=== PATIENT | male | born 1985 | race Caucasian/White ===

== ENCOUNTER 2016-11-07 12:59 | Emergency (ER) | payer OTHER ==
[2016-11-07] MEDS ORDERED: Rocephin 1000 MG INJ IM ONE (13:14)
[2016-11-07 13:15] VITALS: O2SAT 96
--- NOTE | 2016-11-07 13:19 | ERPHSYRPT ---
- History of Present Illness Time Seen by Provider: 11/07/16 13:14 Physician History: 31-year-old male came to the emergency room with complaining of severe sore throat and left ear pain. He is also complaining of pain in the both lower extremities. Symptoms started approximately one to 2 days ago. Patient was complaining of some fever with chills yesterday. Timing/Duration: day(s) (2-3 days) Cough Quality/Degree: no cough Associated Symptoms: earache (left), sore throat, No cough Allergies/Adverse Reactions: No Known Drug Allergies Allergy (Unverified 11/07/16 13:15) Home Medications: Ferrous Sulfate [Iron] 325 mg PO BID 11/07/16 [History] - Review of Systems Constitutional: No Fever, No Chills Eyes: No Symptoms Ears, Nose, & Throat: No Symptoms, Ear Pain, Throat Pain Respiratory: No Cough, No Dyspnea Cardiac: No Chest Pain, No Edema, No Syncope Abdominal/Gastrointestinal: No Abdominal Pain, No Nausea, No Vomiting, No Diarrhea Genitourinary Symptoms: No Dysuria Musculoskeletal: No Back Pain, No Neck Pain Skin: No Rash Neurological: No Dizziness, No Focal Weakness, No Sensory Changes Psychological: No Symptoms Endocrine: No Symptoms All Other Systems: Reviewed and Negative - Nursing Vital Signs Nursing Vital Signs: Initial Vital Signs Temperature 98.6 F Temperature Source Oral Pulse Rate 81 Respiratory Rate 20 Blood Pressure [Right Arm] 120/76 Pain Intensity 7 - Physical Exam General Appearance: no apparent distress Eye Exam: PERRL/EOMI Ears, Nose, Throat Exam: TM abnormal (L), pharyngeal erythema Neck Exam: normal inspection Respiratory Exam: normal breath sounds Cardiovascular Exam: regular rate/rhythm Gastrointestinal/Abdomen Exam: soft - Course Nursing assessment & vital signs reviewed: Yes Ordered Tests: Medication Summary Discontinued Medications Generic Name Dose Route Start Last Admin Trade Name Freq PRN Reason Stop Dose Admin Ceftriaxone Sodium 1,000 mg 11/07/16 13:14 11/07/16 13:26 Rocephin 1000 Mg Inj IM 11/07/16 13:15 1,000 mg STAT ONE Administration Ceftriaxone Sodium Confirm 11/07/16 13:21 Rocephin 1000 Mg Inj Administered 11/07/16 13:22 Dose 1,000 mg .ROUTE .STK-MED ONE Lidocaine HCl Confirm 11/07/16 13:21 Xylocaine 1% Hcl 20 Ml Mdv Administered 11/07/16 13:22 Dose 1 ml .ROUTE .STK-MED ONE - Progress Progress: unchanged Air Movement: good Blood Culture(s) Obtained: No Antibiotics given: Yes Counseled pt/family regarding: diagnosis, need for follow-up - Departure Time of Disposition: 13:19 Departure Disposition: Home Clinical Impression: Pharyngitis Qualifiers: Pharyngitis/tonsillitis etiology: unspecified etiology Qualified Code(s): J02.9 - Acute pharyngitis, unspecified Condition: Stable Critical Care Time: No Referrals: CRISTIN HAN [Primary Care Provider] - Instructions: Strep Throat Additional Instructions: UPPER RESPIRATORY INFECTIONS 1. The signs and symptoms of a cold may last up to 10 days. These illnesses are due to viruses which are not treatable with antibiotics. 2. The following suggestions can aid in recovery and to minimize symptoms: A. Increase fluid intake. B. Acetaminophen or Ibuprofen as directed. C. Avoid smoking environments as this will increase the risk of developing pneumonia. D. For children, may use a cool mist vaporizer in the child's room. 3. Contact your Family Physician if you note: A. Persistent fever >103 for more than 3 days B. Breathing difficulty C. Productive cough of yellow/green sputum D. Illness greater than 7 days E. Persistent vomiting F. Stiff neck Please follow the instructions given to you. Please take your medication as prescribed if given. If symptoms recur or get worse, come back to the emergency room if you cannot reach your primary care physician, or call your primary care physician for an appointment. Again if your symptoms get worse, come back to the emergency room. Thanks for visiting emergency room, and let us take care of you. Prescriptions: Amoxicillin/Potassium Clav [Amox-Clav 875-125 mg Tablet] 1 each PO BID #15 tablet Buspirone HCl 5 mg [Buspar 5 mg] 5 mg PO BID #10 tablet
[2016-11-07] MEDS ORDERED: Rocephin 1000 MG INJ ONE (13:21)
[2016-11-07] MEDS ORDERED: XYLOCAINE 1% HCL 20 ML MDV ONE (13:21)
[2016-11-07 13:56] VITALS: BP 122/62; PULSE 78
== END 2016-11-07 13:55 | disposition home or self-care (01) ==
LOC: ED 12:59
DX: J02.9 Acute pharyngitis, unspecified (principal); M79.662 Pain in left lower leg; M79.661 Pain in right lower leg
CPT/HCPCS: 96372; 99284; J0696

== ENCOUNTER 2017-02-07 02:30 | Emergency (ER) | payer OTHER ==
--- NOTE | 2017-02-07 02:43 | ERPHSYRPT ---
- History of Present Illness Time Seen by Provider: 02/07/17 02:40 Source: patient Exam Limitations: no limitations Physician History: 31-year-old white male arrives with complaint of pain in his throat since yesterday. Patient has not had any vomiting no diarrhea melena hematochezia no fevers. He does have some leg pain. Past medical history patient states he has a history of a leg pain and has had a diagnosis of vitamin D deficiency. Past surgical history negative. Timing/Duration: yesterday Severity: moderate Modifying Factors: Improves With: nothing Associated Symptoms: other (sore throat bilateral leg pain), No nausea, No vomiting, No abdominal pain, No shortness of breath, No heartburn, No diaphoresis, No cough, No chills, No chest pain, No fever, No headaches, No loss of appetite, No malaise, No rash, No syncope, No seizure, No weakness Allergies/Adverse Reactions: No Known Drug Allergies Allergy (Verified 02/07/17 02:41) Home Medications: Ferrous Sulfate [Iron] 325 mg PO BID 11/07/16 [History] Ergocalciferol (Vitamin D2) [Vitamin D] 0 unit PO 02/07/17 [History] Hx Tetanus, Diphtheria Vaccination/Date Given: Yes Hx Influenza Vaccination/Date Given: No Hx Pneumococcal Vaccination/Date Given: No - Review of Systems Constitutional: No Fever, No Chills Eyes: No Symptoms Ears, Nose, & Throat: Throat Pain, No Ear Pain, No Ear Discharge, No Hearing Changes, No Tinnitus, No Nose Pain, No Nose Congestion, No Nose Discharge, No Sinus Drainage, No Epistaxis, No Mouth Pain, No Mouth Swelling, No Loose Teeth, No Throat Swelling, No Hoarse, No Painful Swallowing, No Snoring, No Stridor Respiratory: No Cough, No Dyspnea Cardiac: No Chest Pain, No Edema, No Syncope Abdominal/Gastrointestinal: No Abdominal Pain, No Nausea, No Vomiting, No Diarrhea Genitourinary Symptoms: No Dysuria Musculoskeletal: No Back Pain, No Neck Pain Skin: No Rash Neurological: No Dizziness, No Focal Weakness, No Sensory Changes Psychological: No Symptoms Endocrine: No Symptoms All Other Systems: Reviewed and Negative - Past Medical History Pertinent Past Medical History: Yes Other Medical History: iron def. - Past Surgical History Past Surgical History: Yes Other Surgical History: sinus surgery - Social History Smoking Status: Never smoker Exposure to second hand smoke: No Drug Use: none Patient Lives Alone: No - Nursing Vital Signs Nursing Vital Signs: Initial Vital Signs Temperature 100.6 F Temperature Source Oral Pulse Rate 106 Respiratory Rate 16 Blood Pressure [Right Arm] 145/84 Pain Intensity 7 - Physical Exam General Appearance: no apparent distress, alert Eye Exam: PERRL/EOMI, eyes nml inspection Ears, Nose, Throat Exam: TMs normal, pharyngeal erythema, No pharynx normal ( throat erythmatous), No moist mucous membranes, No dry mucous membranes Neck Exam: normal inspection, non-tender, supple, full range of motion Respiratory Exam: normal breath sounds, lungs clear, No respiratory distress Cardiovascular Exam: regular rate/rhythm, normal heart sounds, normal peripheral pulses Gastrointestinal/Abdomen Exam: soft, normal bowel sounds, No tenderness, No mass Back Exam: normal inspection, normal range of motion, No CVA tenderness, No vertebral tenderness Extremity Exam: normal inspection, normal range of motion, pelvis stable Neurologic Exam: alert, oriented x 3, cooperative, normal mood/affect, nml cerebellar function, nml station & gait, sensation nml, No motor deficits Skin Exam: normal color, warm, dry, No rash Lymphatic Exam: No adenopathy SpO2 Interpretation: normal ([id number]%) - Course Nursing assessment & vital signs reviewed: Yes Ordered Tests: Active Orders 24 hr Category Date Time Status STREP SCREEN-BETA A Stat Lab 02/07/17 02:45 Completed Lab/Rad Data: Laboratory Results 02/07/17 Range/Units 02:45 Streptococcus Screen POSITIVE (Negative) - Progress Progress: improved Progress Note: 02/07/17 02:59 This is a 31-year-old white male with history of vitamin D deficiency. He arrives with complaint of a sore throat since yesterday he has a erythematous throat and he has an increased temperature here in the emergency room. Strep is positive Will go ahead and place patient on amoxicillin 500 mg orally 3 times a day for 10 days. - Departure Time of Disposition: 03:01 Departure Disposition: Home Clinical Impression: Strep pharyngitis Condition: Fair Critical Care Time: No Instructions: Strep Throat Additional Instructions: Return home. Plenty of fluids. Amoxicillin 500 mg orally 3 times a day for 10 days. Tylenol every 4-6 hours as needed for pain. Follow-up with your family symptoms are worse no better in 48 hours, or persist longer than one week. Return for acute distress or for severe symptoms. Prescriptions: Amoxicillin 500 mg PO TID #30 capsule
[2017-02-07] MEDS ORDERED: AMOXIL 500 MG PO ONE (03:03)
[2017-02-07] MEDS ORDERED: TYLENOL 325 MG PO ONE (03:03)
[2017-02-07] MEDS ORDERED: TYLENOL 325 MG ONE (03:07)
[2017-02-07] MEDS ORDERED: AMOXIL 500 MG ONE (03:07)
[2017-02-07 03:33] VITALS: BP 119/77; PULSE 97; O2SAT 99
== END 2017-02-07 03:34 | disposition home or self-care (01) ==
LOC: ED 02:30
DX: J02.0 Streptococcal pharyngitis (principal)
CPT/HCPCS: 87430; 99283; A9270-GY

== ENCOUNTER 2021-05-12 09:17 | Emergency (ER) | payer OTHER ==
[2021-05-12] MEDS ORDERED: Sodium Chloride 0.9% 1000 ML 1,000 ML IV STA ×2 (09:45→11:31)
[2021-05-12] MEDS ORDERED: Sodium Chloride 0.9% 1000 ML 1,000 ML ONE ×2 (09:51→11:34)
--- NOTE | 2021-05-12 10:08 | ERPHSYRPT ---
- History of Present Illness Time Seen by Provider: 05/12/21 09:40 Source: patient Exam Limitations: no limitations Patient Subjective Stated Complaint: weakness/ fatigue Triage Nursing Assessment: Patient ambulated back to ED and transferred self to bed. Patient A+O X3. Patient's skin pink, warm and dry. Patient complains of weakness and fatigue for 8 days. Patient complains of ble pain constant aching cramping 3/10. Patient has non productive cough. Physician History: Patient is a 36-year-old male presents to our ED for evaluation of, body aches muscle cramps fatigue and generalized weakness x8 days. Patient has been seen at a [facility]. Patient was tested for Covid RSV strep and flu. Per patient work-up was negative. Patient states he has been experiencing an intermittent dry cough. Symptoms are mild to moderate in intensity. No specific worsening improving factors. Patient is otherwise healthy. Patient up-to-date with all vaccinations. Patient has 1 of a series of 2 Covid vaccinations. Patient voices no other complaints or concerns at this time. Timing/Duration: day(s) (8 days) Severity: moderate Modifying Factors: Improves With: nothing Associated Symptoms: fever (Fever at home a few days ago. Currently afebrile.), No nausea, No vomiting, No shortness of breath, No syncope, No other Allergies/Adverse Reactions: No Known Drug Allergies Allergy (Verified 05/12/21 09:33) Home Medications: No Reportable Medications [No Reported Medications] 05/12/21 [History] Hx Tetanus, Diphtheria Vaccination/Date Given: Yes Hx Influenza Vaccination/Date Given: No Hx Pneumococcal Vaccination/Date Given: No Immunizations Up to Date: Yes Travel Risk - International Travel Have you traveled outside of the country in past 3 weeks: No - Coronavirus Screening Are you exhibiting any of the following symptoms?: No Close contact with a COVID-19 positive Pt in past 14-21 Days: No - Vaccine Status Have you recieved a Covid-19 vaccination: Yes 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: [employer] - Vaccination Dates Date of 2cond Vaccination (if applicable): N/A - Review of Systems Constitutional: No Symptoms, No Fever, No Chills Eyes: No Symptoms Ears, Nose, & Throat: No Symptoms Respiratory: No Symptoms, No Cough, No Dyspnea Cardiac: No Symptoms, No Chest Pain, No Edema, No Syncope Abdominal/Gastrointestinal: No Symptoms, No Abdominal Pain, No Nausea, No Vomiting, No Diarrhea Genitourinary Symptoms: No Symptoms, No Dysuria Musculoskeletal: No Symptoms, No Back Pain, No Neck Pain Skin: No Symptoms, No Rash Neurological: No Symptoms, No Dizziness, No Focal Weakness, No Sensory Changes Psychological: No Symptoms Endocrine: No Symptoms Hematologic/Lymphatic: No Symptoms Immunological/Allergic: No Symptoms All Other Systems: Reviewed and Negative - Past Medical History Pertinent Past Medical History: Yes Other Medical History: iron def. - Past Surgical History Past Surgical History: Yes Neuro Surgical History: No Pertinent History Cardiac: No Pertinent History Respiratory: No Pertinent History Gastrointestinal: No Pertinent History Genitourinary: No Pertinent History Musculoskeletal: Orthopedic Surgery Male Surgical History: No Pertinent History Other Surgical History: sinus surgery. Right shoulder surger - Social History Smoking Status: Never smoker Exposure to second hand smoke: No Drug Use: none Patient Lives Alone: No - Nursing Vital Signs Nursing Vital Signs: Initial Vital Signs Temperature 99.1 F 05/12/21 09:34 Pulse Rate 80 05/12/21 09:34 Respiratory Rate 18 05/12/21 09:34 Blood Pressure 116/75 05/12/21 09:34 O2 Sat by Pulse Oximetry 96 05/12/21 09:34 Pain Scale Pain Intensity 0 - Physical Exam General Appearance: no apparent distress, alert Eye Exam: PERRL/EOMI, eyes nml inspection Ears, Nose, Throat Exam: normal ENT inspection, TMs normal, pharynx normal, moist mucous membranes Neck Exam: normal inspection, non-tender, supple, full range of motion Respiratory Exam: normal breath sounds, lungs clear, No respiratory distress Cardiovascular Exam: regular rate/rhythm, normal heart sounds, normal peripheral pulses Gastrointestinal/Abdomen Exam: soft, normal bowel sounds, No tenderness, No mass Back Exam: normal inspection, normal range of motion, No CVA tenderness, No vertebral tenderness Extremity Exam: normal inspection, normal range of motion, pelvis stable Neurologic Exam: alert, oriented x 3, cooperative, normal mood/affect, nml cerebellar function, nml station & gait, sensation nml, No motor deficits Skin Exam: normal color, warm, dry, No rash Lymphatic Exam: No adenopathy SpO2: 95 - Course Nursing assessment & vital signs reviewed: Yes - Radiology Exams Chest X-ray Interpretation: Teleradiologist Report (Portable chest remains clear. Heart not enlarged. Bony thorax intact. No new acute findings.) Ordered Tests: Active Orders 24 hr Category Date Time Status Prepared Foods Team Leader STAT Care 05/12/21 09:45 Active IV Insertion STAT Care 05/12/21 09:45 Active Pulse Oximetry (ED) STAT Care 05/12/21 09:45 Active CHEST 1 VIEW (PORTABLE) Stat Exams 05/12/21 09:45 Completed BLOOD CULTURE Stat Lab 05/12/21 10:05 Received CBC W DIFF Stat Lab 05/12/21 10:00 Completed CMP Stat Lab 05/12/21 10:00 Completed MAG [MAGNESIUM] Stat Lab 05/12/21 10:00 Completed Manual Differential NC Stat Lab 05/12/21 10:00 Completed [place] Screen Stat Lab 05/12/21 12:02 Completed TSH [TSH, 3RD Generation] Stat Lab 05/12/21 12:20 Ordered Medication Summary Generic Name Dose Route Start Last Admin Trade Name Freq PRN Reason Stop Dose Admin Sodium Chloride 1,000 mls @ 999 mls/hr 05/12/21 11:31 05/12/21 11:36 Sodium Chloride 0.9% 1000 Ml IV 05/12/21 12:31 999 mls/hr .Q1H1M STA Administration Discontinued Medications Generic Name Dose Route Start Last Admin Trade Name Freq PRN Reason Stop Dose Admin Sodium Chloride 1,000 mls @ 999 mls/hr 05/12/21 09:45 05/12/21 10:58 Sodium Chloride 0.9% 1000 Ml IV 05/12/21 10:45 Infused .Q1H1M STA Infusion Sodium Chloride Confirm 05/12/21 09:51 Sodium Chloride 0.9% 1000 Ml Administered 05/12/21 09:52 Dose 1,000 mls @ ud .ROUTE .STK-MED ONE Sodium Chloride Confirm 05/12/21 11:34 Sodium Chloride 0.9% 1000 Ml Administered 05/12/21 11:35 Dose 1,000 mls @ ud .ROUTE .STK-MED ONE Lab/Rad Data: Laboratory Result Diagrams 05/12/21 10:00 05/12/21 10:00 Laboratory Results 05/12/21 05/12/21 05/12/21 Range/Units 12:02 10:00 10:00 WBC (4.0-10.5) K/mm3 RBC (4.1-5.6) M/mm3 Hgb (12.5-18.0) gm/dl Hct (42-50) % MCV (78-100) fl MCH (26-32) pg MCHC (32-36) g/dl RDW (11.5-14.0) % Plt Count (150-450) K/mm3 MPV (7.5-11.0) fl Segmented Neutrophils (36.-66.) % Lymphocytes (Manual) (24-44) % Monocytes (Manual) (0.0-12.0) % Eosinophils (Manual) (0.00-3.0) % Platelet Estimate (NORMAL) RBC Morphology Anisocytosis Microcytosis Sodium 140 (137-145) mmol/L Potassium 3.8 (3.5-5.1) mmol/L Chloride 104 (98-107) mmol/L Carbon Dioxide 24 (22-30) mmol/L Anion Gap 15.8 H (5-15) MEQ/L BUN 9 (9-20) mg/dL Creatinine 0.68 (0.66-1.25) mg/dL Estimated GFR > 60.0 ML/MIN Glucose 96 (74-106) mg/dL Calcium 9.3 (8.4-10.2) mg/dL Magnesium 2.1 (1.6-2.3) mg/dL Total Bilirubin 0.60 (0.2-1.3) mg/dL AST 39 (17-59) U/L ALT 50 (0-50) U/L Alkaline Phosphatase 82 (38-126) U/L Serum Total Protein 7.5 (6.3-8.2) g/dL Albumin 4.3 (3.5-5.0) g/dL Monoscreen NEGATIVE (Negative) 05/12/21 Range/Units 10:00 WBC 6.1 (4.0-10.5) K/mm3 RBC 4.58 (4.1-5.6) M/mm3 Hgb 13.4 (12.5-18.0) gm/dl Hct 41.1 L (42-50) % MCV 89.7 (78-100) fl MCH 29.3 (26-32) pg MCHC 32.6 (32-36) g/dl RDW 13.1 (11.5-14.0) % Plt Count 293 (150-450) K/mm3 MPV 8.4 (7.5-11.0) fl Segmented Neutrophils 56 (36.-66.) % Lymphocytes (Manual) 33 (24-44) % Monocytes (Manual) 9 (0.0-12.0) % Eosinophils (Manual) 2 (0.00-3.0) % Platelet Estimate NORMAL (NORMAL) RBC Morphology ABNORMAL Anisocytosis 1+ Microcytosis 1+ Sodium (137-145) mmol/L Potassium (3.5-5.1) mmol/L Chloride (98-107) mmol/L Carbon Dioxide (22-30) mmol/L Anion Gap (5-15) MEQ/L BUN (9-20) mg/dL Creatinine (0.66-1.25) mg/dL Estimated GFR ML/MIN Glucose (74-106) mg/dL Calcium (8.4-10.2) mg/dL Magnesium (1.6-2.3) mg/dL Total Bilirubin (0.2-1.3) mg/dL AST (17-59) U/L ALT (0-50) U/L Alkaline Phosphatase (38-126) U/L Serum Total Protein (6.3-8.2) g/dL Albumin (3.5-5.0) g/dL Monoscreen (Negative) - Progress Progress: improved Progress Note: Patient reassessed. He feels better. Patient feels a little weak per patient. We will order a TSH. No need to stay during TSH processing. If abnormal will call patient at home. Patient's primary care doctor is Dr. Larkin according to patient. We will refer patient back to Dr. Larkin office for follow-up. Patient voices no other complaints concerns at this time. Will discharge home. Portions of this note were created with voice recognition technology. There may be grammatical, spelling, punctuation or sound alike errors 05/12/21 12:25 Counseled pt/family regarding: lab results, diagnosis, need for follow-up, rad results - Departure Departure Disposition: Home Clinical Impression: Fatigue Condition: Stable Critical Care Time: No Referrals: CHOLO HAWKINS MD [Primary Care Provider] - Additional Instructions: Discharge/Care Plan JAVAD PARHAM TK was seen on 05/12/21 in the Emergency Room. The patient was counseled regarding Diagnosis,Lab results, Imaging studies, need for follow up and when to return to the Emergency Room. Prescriptions given: Discharge Note I have spoken with the patient and/or caregivers. I have explained the patient's condition, diagnosis and treatment plan based on the information available to me at this time. I have answered the patient's and/or caregiver's questions and addressed any concerns. The patient and/or caregivers have as good understanding of the patient's diagnosis, condition and treatment plan as can be expected at this point. The vital signs have been stable. The patient's condition is stable and appropriate for discharge from the emergency department. The patient will pursue further outpatient evaluation with the primary care physician or other designated or consulting physician as outlined in the discharge instructions. The patient and/or caregivers are agreeable to this plan of care and follow-up instructions have been explained in detail. The patient and/or caregivers have received these instruction. The patient/and or caregivers are aware that any significant change in condition or worsening of symptoms should prompt an immediate return to this or the closest emergency department or call 911.
--- NOTE | 2021-05-12 10:14 | XRAY ---
Indication: Cough. Pneumonia. Comparison: March 24, 2021. Portable chest remains clear. Heart not enlarged. Bony thorax intact. No new/acute findings.
[2021-05-12 10:25] LABS: Hematocrit 41.1 % (42-50); Hemoglobin 13.4 gm/dl (12.5-18.0); Mean Cell Volume 89.7 fl (78-100); Mean Corpuscular Hemoglobin 29.3 pg (26-32); Mean Corpuscular Hgb Concent. 32.6 g/dl (32-36); Mean Platelet Volume 8.4 fl (7.5-11.0); Platelet Count 293 K/mm3 (150-450); Red Blood Count 4.58 M/mm3 (4.1-5.6); Red Cell Distribution Width 13.1 % (11.5-14.0); White Blood Count 6.1 K/mm3 (4.0-10.5)
[2021-05-12 11:15] LABS: ALBUMIN 4.3 g/dL (3.5-5.0); ALKALINE PHOSPHATASE 82 U/L (38-126); BLOOD UREA NITROGEN 9 mg/dL (9-20); Carbon Dioxide 24 mmol/L (22-30); Creatinine 1 0.68 mg/dL (0.66-1.25); EST GLOMERULAR FILTRATION RATE > 60.0 ML/MIN; Glucose 96 mg/dL (74-106); SGOT/AST 39 U/L (17-59); Total Protein 7.5 g/dL (6.3-8.2)
[2021-05-12 11:19] LABS: Calcium 9.3 mg/dL (8.4-10.2); SGPT/ALT 50 U/L (0-50)
[2021-05-12 11:54] LABS: ANISOCYTOSIS 1+; Eosinophil 2 % (0.00-3.0); Lymphocytes 33 % (24-44); Microcytosis 1+; Monocyte 9 % (0.0-12.0); Neutrophils 56 % (36.-66.); Platelet Estimate NORMAL (NORMAL); Total Cells Counted 100
[2021-05-12 11:56] LABS: ANION GAP 15.8 MEQ/L (5-15); CHLORIDE 104 mmol/L (98-107); Potassium 3.8 mmol/L (3.5-5.1); SODIUM 140 mmol/L (137-145)
[2021-05-12 12:37] VITALS: BP 114/66; PULSE 57; O2SAT 97
== END 2021-05-12 12:37 | disposition home or self-care (01) ==
LOC: ED 09:17
DX: R53.83 Other fatigue (principal); R53.1 Weakness; R50.9 Fever, unspecified
CPT/HCPCS: 36000; 36415; 71045; 80053; 83735; 84443; 85025; 86308; 87040; 93041; 94760; 96360; 99284

== ENCOUNTER 2023-10-01 18:50 | Emergency (ER) | payer OTHER ==
[2023-10-01 19:24] VITALS: RESP 16; TEMP 98.1; O2SAT 98
[2023-10-01] MEDS ORDERED: TORAdol 30 mg Injection ONE (19:36)
[2023-10-01] MEDS: TORAdol 30 mg Injection IM ONE (19:39)
--- NOTE | 2023-10-01 20:24 | ERPHSYRPT ---
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 states he does a lot of lifting over his head at work Triage Nursing Assessment: pt alert and oriented, answers questions approp. pt ambulates into room with steady gait noted. respirations nonlabored. skin warm and dry. radial pulse and cap refill to rt wnl. Physician History: 38 years old right-handed dominant male with multiple right shoulder surgeries presented in the ER with complaint of increasing pain right shoulder after he was fixing overhead light cable and had a popping sound in shoulder this morning. Patient has taken 400 mg ibuprofen with no significant relief. Reports increasing pain sharp shooting moderate to severe, exacerbated with minimal movements of the shoulder and severely restricting movements. No numbness or tingling/weakness of right upper extremity/hand. Allergies/Adverse Reactions: No Known Drug Allergies Allergy (Verified 10/01/23 19:24) Home Medications: Doxycycline Hyclate 100 mg [Vibramycin 100 MG] 100 mg PO BID 10/01/23 [History] Hx Tetanus, Diphtheria Vaccination/Date Given: Yes Hx Influenza Vaccination/Date Given: No Hx Pneumococcal Vaccination/Date Given: No Immunizations Up to Date: Yes Travel Risk - International Travel Have you traveled outside of the country in past 3 weeks: No - Coronavirus Screening Are you exhibiting any of the following symptoms?: No Close contact with a COVID-19 positive Pt in past 14-21 Days: No - Vaccine Status Have you recieved a Covid-19 vaccination: 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[employer]: [employer] - Vaccination Dates Date of 2cond Vaccination (if applicable): 2020 - Review of Systems Constitutional: No Symptoms Ears, Nose, & Throat: No Symptoms Respiratory: No Symptoms Cardiac: No Symptoms Abdominal/Gastrointestinal: No Symptoms Musculoskeletal: Arthralgias, Joint Pain Skin: No Symptoms Neurological: No Symptoms - Past Medical History Pertinent Past Medical History: Yes Neurological History: No Pertinent History Cardiac History: No Pertinent History Respiratory History: No Pertinent History, Bronchitis Endocrine Medical History: No Pertinent History Musculoskeletal History: No Pertinent History Other Medical History: 4 PREVIOUS SURGERIES ON THE R SHOULDER. diagnosed with lyme disease approx 2019 - Past Surgical History Past Surgical History: Yes Neuro Surgical History: No Pertinent History Cardiac: No Pertinent History Respiratory: No Pertinent History Gastrointestinal: No Pertinent History Genitourinary: No Pertinent History Musculoskeletal: Orthopedic Surgery Male Surgical History: No Pertinent History Other Surgical History: sinus surgery. Right shoulder surger - Social History Smoking Status: Never smoker Exposure to second hand smoke: No Drug Use: none Patient Lives Alone: No - Nursing Vital Signs Nursing Vital Signs: Initial Vital Signs Temperature 98.1 F 10/01/23 19:14 Pulse Rate 81 10/01/23 19:14 Respiratory Rate 16 10/01/23 19:14 Blood Pressure 129/78 10/01/23 19:14 O2 Sat by Pulse Oximetry 98 10/01/23 19:14 Pain Scale Pain Intensity 7 - Physical Exam General Appearance: no apparent distress Eyes, Ears, Nose, Throat Exam: normal ENT inspection Neck Exam: normal inspection, non-tender, supple, full range of motion Cardiovascular/Respiratory Exam: normal breath sounds, regular rate/rhythm Shoulder Exam: normal inspection, limited ROM (Right shoulder with minimal tenderness to deep palpation. Restricted range of motion in all directions. Distal neurovascular intact) Elbow/Forearm Exam: normal inspection, non-tender, no evidence of injury, normal ROM Wrist Exam: normal inspection, non-tender, no evidence of injury Neuro/Tendon Exam: normal sensation, normal motor functions Mental Status Exam: alert Skin Exam: normal color SpO2 Interpretation: normal SpO2: 98 O2 Delivery: Room Air Ordered Tests: Active Orders 24 hr Category Date Time Status SHOULDER Stat Exams 10/01/23 19:30 Taken Medication Summary Discontinued Medications Generic Name Dose Route Start Last Admin Trade Name Freq PRN Reason Stop Dose Admin Al Hydrox/Mg Hydrox/Simethicone 20 ml 10/01/23 19:55 Mag Hydrox/Al Hydrox/Simeth 30 Ml Udcup PO 10/01/23 19:56 STAT ONE Diphenhydramine HCl 25 mg 10/01/23 19:55 Diphenhydramine Hcl 12.5 Mg/5 Ml Oral Solution PO 10/01/23 19:56 STAT ONE Ketorolac Tromethamine 30 mg 10/01/23 19:30 10/01/23 19:39 Ketorolac Tromethamine 30 Mg/Ml Inj IM 10/01/23 19:31 30 mg STAT ONE Administration Ketorolac Tromethamine Confirm 10/01/23 19:36 Ketorolac Tromethamine 30 Mg/Ml Inj Administered 10/01/23 19:37 Dose 30 mg .ROUTE .STK-MED ONE Lidocaine HCl 15 ml 10/01/23 19:54 Lidocaine Hcl 2% Viscous 15 Ml Udcup PO 10/01/23 19:55 STAT ONE - Progress Progress: pain not gone completely Progress Note: 10/01/23 20:26 38 years old is evaluated for right shoulder pain sudden onset while fixing some stuff overhead and heard a popping sound. Patient has a significant restricted range of motion of the right shoulder. I have given him Toradol, x-rays are negative for fracture dislocation reviewed by me, official report is pending. Patient is feeling better on reevaluation with minimal increase/improvement of mobility. Recommended sling application, NSAIDs and outpatient orthopedics follow-up. Patient had previous surgeries done in [place] and [place] and would like to follow-up with Dr. [place]. Recommended intermittent ice application, avoiding exertional activities and outpatient follow-up. Counseled pt/family regarding: diagnosis, need for follow-up, rad results Medical Desision Making - Diagnostic Testing Diagnostic test were ordered, analyzed, and reviewed by me: Yes Radiological Interpretation: Interpreted by me, Reviewed by me - Risk of complications The pt has a mod risk of morbidity or mortality based on: Need for prescription drug management - Departure Departure Disposition: Home Clinical Impression: Sprain of shoulder, right Condition: Stable Critical Care Time: No Referrals: MARGARITA LEUNG, [facility] [Primary Care Provider] - Follow up with PCP 2 days AKILA PEÑALOZA [NON-STAFF PHY W/O PRIVILEGES] - Follow up/PCP as directed (In 2 days for reevaluation) Instructions: Shoulder Sprain (DC), Shoulder Tendinopathy (DC) Additional Instructions: Take Tylenol/ibuprofen as recommended. Intermittent ice application. Avoid exertional activities. Follow-up with orthopedics for reevaluation on Tuesday. Prescriptions: Ibuprofen 600 mg PO Q6HPRN PRN 10 Days #30 tablet PRN Reason: Pain
[2023-10-01 20:25] VITALS: BP 121/77; PULSE 76
[2023-10-01] MEDS: XYLOCAINE VISCOUS 2% 15 ML CUP PO ONE (20:39)
[2023-10-01] MEDS: BENADRYL 12.5 MG/5 ML PO ONE (20:39)
[2023-10-01] MEDS: MAALOX ES 30 ML UNIT DOSE PO ONE (20:39)
--- NOTE | 2023-10-01 20:42 | XRAY ---
Indication: Pain. Comparison: None 3 view right shoulder demonstrates partial resection distal clavicle and humeral head radiolucencies presumed postsurgical. No other bony, articular, or soft tissue abnormalities.
== END 2023-10-01 20:46 | disposition home or self-care (01) ==
LOC: ED 18:50
DX: S43.401A Unspecified sprain of right shoulder joint, initial encounter (principal); X50.1XXA Overexertion from prolonged static or awkward postures, initial encounter; Z79.899 Other long term (current) drug therapy
CPT/HCPCS: 73030; 96372; 99283; J1885